=== PATIENT | male | born 1990 | race African-American/Black ===

== ENCOUNTER 2016-11-15 21:57 | Emergency (ER) | payer OTHER ==
[2016-11-15 22:03] VITALS: BP 153/96
[2016-11-15] MEDS ORDERED: ERYTHROMYCIN OPHTH OINT 1 GM TUBE EACHEYE STA (22:12)
--- NOTE | 2016-11-15 22:14 | ED Physician Documentation ---
PD HPI OPHTHO - Stated complaint Stated Complaint: EYE DISCHARGE - Chief complaint Chief Complaint: Heent - History obtained from History obtained from: Patient - History of Present Illness Timing - onset: Other (Bilateral eye redness and discharge today without visual deficit. Does not wear contact lenses.) Review of Systems Constitutional: denies: Fever, Chills Eyes: reports: Discharge, Irritation. denies: Loss of vision, Decreased vision , Photophobia Ears: denies: Loss of hearing, Ear pain Nose: reports: Rhinorrhea / runny nose. denies: Congestion PD PAST MEDICAL HISTORY - Present Medications Home Medications: Ambulatory Orders Medication Instructions Recorded Confirmed Erythromycin Base [Erythromycin] 1 applic OP 5XD 7 Days 11/15/16 Lisinopril [Prinivil] 20 mg PO DAILY 11/15/16 11/15/16 - Allergies Allergies/Adverse Reactions: Allergies Allergy/AdvReac Type Severity Reaction Status Date / Time No Known Drug Allergies Allergy Verified 11/15/16 22:03 PD ED PE NORMAL - Vitals Vital signs reviewed: Yes - General General: Alert and oriented X 3, No acute distress - HEENT HEENT: PERRL, EOMI, Other (Bilateral conjunctivitis with some purulent drainage) - Neck Neck: Supple, no meningeal sign, No bony TTP - Neuro Neuro: Alert and oriented X 3, Normal speech - Psych Psych: Normal mood, Normal affect Results - Vitals Vitals: Vital Signs - 24 hr 11/15/16 22:00 Temperature 36.7 C Heart Rate 76 Respiratory 16 Rate Blood Pressure 153/96 H O2 Saturation 99 Oxygen O2 Source Room air Departure - Departure Disposition: 01 Home, Self Care Clinical Impression: Conjunctivitis Qualifiers: Conjunctivitis type: acute Acute conjunctivitis type: unspecified Laterality: bilateral Qualified Code(s): H10.33 - Unspecified acute conjunctivitis, bilateral Condition: Good Record reviewed to determine appropriate education?: Yes Instructions: ED Conjunctivitis Nonspecific Prescriptions: Erythromycin Base [Erythromycin] 1 applic OP 5XD 7 Days Comments: Followup with your physician if not better in 3 days. Return if worse. Your blood pressure was elevated today on check in to the emergency department. This does not mean that you have hypertension, it is a common phenomenon to check into the emergency department and have elevated blood pressure. I recommend that you see your primary care physician within the week to have it rechecked when you're feeling better.
== END 2016-11-15 22:32 | disposition home or self-care (01) ==
LOC: ED 21:57
DX: H10.33 Unspecified acute conjunctivitis, bilateral (principal); R03.0 Elevated blood-pressure reading, without diagnosis of hypertension
CPT/HCPCS: 99282; 99283

== ENCOUNTER 2017-08-29 12:36 | Emergency (ER) | payer OTHER ==
--- NOTE | 2017-08-29 12:46 | ED Physician Documentation ---
History of Present Illness - Stated complaint Stated Complaint: TOOTH PX - Chief complaint Chief Complaint: Heent - History obtained from History obtained from: Patient - History of Present Illness Timing: Today Pain level max: 9 Pain level now: 8 Improved by: nothing Worsened by: eating - Additonal information Additional information: L lower molar pain today. States had a root canal several years ago and has a crown there now. Worse with palpation, chewing. No fevers. No facial swelling. Review of Systems Constitutional: denies: Fever, Chills Nose: denies: Rhinorrhea / runny nose, Congestion GI: denies: Vomiting, Diarrhea Skin: denies: Rash Musculoskeletal: denies: Neck pain, Back pain Neurologic: denies: Headache PD PAST MEDICAL HISTORY - Past Medical History Past Medical History: Yes Cardiovascular: Hypertension - Past Surgical History Past Surgical History: Yes General: Other (dental surgery) - Present Medications Home Medications: Ambulatory Orders Medication Instructions Recorded Confirmed Lisinopril [Prinivil] 20 mg PO DAILY 11/15/16 11/15/16 Hydrocodone/Acetaminophen 1 - 2 each PO Q6H PRN #14 tablet 08/29/17 [Hydrocodon-Acetaminophen 5-325] Penicillin V Potassium 500 mg PO Q6HR #40 tablet 08/29/17 - Allergies Allergies/Adverse Reactions: Allergies Allergy/AdvReac Type Severity Reaction Status Date / Time No Known Drug Allergies Allergy Verified 08/29/17 12:42 - Living Situation Living Situation: reports: With family Living Arrangement: reports: At home PD ED PE NORMAL - Vitals Vital signs reviewed: Yes - General General: Alert and oriented X 3, No acute distress - HEENT HEENT: Moist mucous membranes - Neck Neck: Supple, no meningeal sign - Derm Derm: Warm and dry - Neuro Neuro: Alert and oriented X 3 - Psych Psych: Normal mood, Normal affect PD ED PE EXPANDED - HEENT HEENT Visual: 1 - tenderness (no swelling or abscess. No ludwigs angina) Results - Vitals Vitals: Vital Signs - 24 hr 08/29/17 08/29/17 08/29/17 12:38 12:44 13:55 Temperature 36.7 C 36.7 C Heart Rate 75 71 Respiratory 14 18 Rate Blood Pressure 160/96 H 150/93 H O2 Saturation 100 100 Oxygen O2 Source Room air PD MEDICAL DECISION MAKING - ED course Complexity details: considered differential, d/w patient ED course: Patient is a 27-year-old male who presents to the emergency department with dental pain. He was given a dental block with good effect, 0.5% Marcaine. Will prescribe pain medications and antibiotics for home. He is well-appearing , nontoxic. No evidence of facial cellulitis, drainable abscess or Flavio's angina. Patient counseled regarding signs and symptoms for which I believe and urgent re-evaluation would be necessary. Patient with good understanding of and agreement to plan and is comfortable going home at this time This document was made in part using voice recognition software. While efforts are made to proofread this document, sound alike and grammatical errors may occur. Departure - Departure Disposition: 01 Home, Self Care Clinical Impression: Pain due to dental caries Condition: Good Instructions: ED Tooth Pain Follow-Up: Yang Abad MD [Primary Care Provider] - Within 1 week Prescriptions: Penicillin V Potassium 500 mg PO Q6HR #40 tablet Hydrocodone/Acetaminophen [Hydrocodon-Acetaminophen 5-325] 1 - 2 each PO Q6H PRN #14 tablet PRN Reason: pain Comments: You need to follow-up with your dentist on Thursday. Return if you worsen. Do not drink alcohol or drive while on narcotic pain medicine. Note that many narcotic pain relievers also contain tylenol/acetaminophen. Please ensure that your total dose of acetaminophen from all sources does not exceed 3 grams (3000mg) per day. You may constipated on this medication, take a stool softener such as "Colace" twice a day while you are on it. Also recommend a [id number] laxative such as senna or MiraLAX any day that you do not have a bowel movement. If you received narcotic pain medication in the emergency department, do not drive or operate machinery for the next 24 hours. Discharge Date/Time: 08/29/17 13:55
[2017-08-29] MEDS ORDERED: BUPIVACAINE 0.5% PF 30 ML VIAL SUBQ STA (13:12)
[2017-08-29] MEDS ORDERED: BUPIVACAINE 0.5% PF 10 ML VIAL SUBQ STA (13:14)
[2017-08-29] MEDS ORDERED: PENICILLIN VK 250 MG TABLET PO STA (13:26)
[2017-08-29 13:56] VITALS: BP 150/93
== END 2017-08-29 13:55 | disposition home or self-care (01) ==
LOC: ED 12:36
DX: K02.9 Dental caries, unspecified (principal); K08.89 Other specified disorders of teeth and supporting structures; I10 Essential (primary) hypertension
CPT/HCPCS: 64400; 99283; A9270